=== PATIENT | female | born 1955 | race Caucasian/White ===

== ENCOUNTER 2017-10-02 09:43 | Inpatient (IN) ==
[2017-10-02] MEDS ORDERED: DEXTROSE 50% 25 GM/50 ML VIAL IV PRN (14:47)
[2017-10-02] MEDS ORDERED: ZALEPLON 5 MG CAPSULE PO PRN (14:47)
[2017-10-02] MEDS ORDERED: GLUCAGON 1 MG VIAL IM PRN (14:47)
[2017-10-02] MEDS ORDERED: ACETAMINOPHEN 325 MG TABLET PO PRN (14:47)
[2017-10-02] MEDS ORDERED: BISACODYL 5 MG TABLET PO PRN (14:47)
[2017-10-02] MEDS ORDERED: FAMOTIDINE 20 MG TABLET PO PRN (14:49)
[2017-10-02] MEDS ORDERED: NON-FORMULARY MEDICATION (Albuterol Sulfate [Ventolin Hfa] 2 PUFF) INH PRN (14:49)
[2017-10-02] MEDS ORDERED: ALBUTEROL 1.25 MG/3 ML NEB RESP TX PRN (14:49)
[2017-10-02 16:06] LABS: Albumin 3.1 G/DL (3.4-5.0); Bilirubin,Total 0.7 MG/DL (0.2-1.0); Calcium 8.3 MG/DL (8.5-10.1); Osmolality,Calculated 260.7 MOS/KG (273-304); Potassium 3.1 MMOL/L (3.5-5.1); Total Protein 6.7 G/DL (6.4-8.3)
[2017-10-02] MEDS: POTASSIUM CHLORIDE 20 MEQ TABLET PO SCH ×3 (16:22→23:24)
[2017-10-02] MEDS: ASPIRIN EC 81 MG TABLET PO SCH (21:24)
[2017-10-03] MEDS: POTASSIUM CHLORIDE 20 MEQ TABLET PO SCH (03:53)
[2017-10-03 06:44] LABS: Calcium 8.9 MG/DL (8.5-10.1); Magnesium 2.1 MG/DL (1.8-2.4); Potassium 5.2 MMOL/L (3.5-5.1)
[2017-10-03] MEDS: LISINOPRIL 5 MG TABLET PO SCH (08:28)
[2017-10-03] MEDS: SERTRALINE 100 MG TABLET PO SCH (08:28)
[2017-10-03] MEDS: ATORVASTATIN 20 MG TABLET PO SCH (08:29)
[2017-10-03] MEDS: PANTOPRAZOLE 40 MG TABLET PO SCH (10:51)
[2017-10-03] MEDS: ASPIRIN EC 81 MG TABLET PO SCH (20:56)
[2017-10-04 02:48] LABS: Basophils % 0.4 % (0.0-0.8); Eosinophils # 0.2 10*3/uL (0.0-0.87); Eosinophils % 2.3 % (0.00-10.9); Hematocrit 24.2 VOL% (35.7-47.0); Hemoglobin 6.8 GM/DL (12.0-16.0); Immature Granulocytes % 0.3 %; Immature Granulocytes Absolute 0.03 #; Lymphocytes # 2.6 10*3/uL (1.4-4.0); Lymphocytes % 28.2 % (21.3-54.2); Mean Corpuscular HGB Conc 28.1 GM/DL (32-36); Mean Corpuscular Hemoglobin 17 PG (27-34); Mean Corpuscular Volume 60.8 FL (87-102); Mean Platelet Volume 10.4 FL (9.6-12.0); Monocytes # 0.7 10*3/uL (0.11-0.8); Monocytes % 7.7 % (1.7-12.7); Neutrophils # 5.6 10*3/uL (1.4-7.4); Neutrophils % 61.1 % (38.7-73.9); Platelet Count 314 T/CUMM (130-400); Red Blood Count 3.98 MC/CUMM (3.8-5.5); Red Cell Distribution Width 19.8 % (9.3-17.3); White Blood Count 9.2 T/CUMM (4-12)
[2017-10-04 03:17] LABS: Calcium 8.8 MG/DL (8.5-10.1); Osmolality,Calculated 267.1 MOS/KG (273-304); Potassium 4.4 MMOL/L (3.5-5.1)
[2017-10-04] MEDS: SERTRALINE 100 MG TABLET PO SCH (09:52)
[2017-10-04] MEDS: LISINOPRIL 5 MG TABLET PO SCH (09:52)
[2017-10-04] MEDS: PANTOPRAZOLE 40 MG TABLET PO SCH (09:52)
[2017-10-04] MEDS: ATORVASTATIN 20 MG TABLET PO SCH (09:53)
[2017-10-04] MEDS: ASPIRIN EC 81 MG TABLET PO SCH (21:06)
[2017-10-05 05:44] LABS: Basophils # 0.1 10*3/uL (0.0-0.2); Basophils % 0.6 % (0.0-0.8); Eosinophils # 0.3 10*3/uL (0.0-0.87); Eosinophils % 2.6 % (0.00-10.9); Hematocrit 33.5 VOL% (35.7-47.0); Immature Granulocytes % 0.4 %; Immature Granulocytes Absolute 0.04 #; Lymphocytes # 2.3 10*3/uL (1.4-4.0); Lymphocytes % 23.6 % (21.3-54.2); Mean Corpuscular HGB Conc 29.9 GM/DL (32-36); Mean Corpuscular Hemoglobin 20 PG (27-34); Mean Corpuscular Volume 66.1 FL (87-102); Mean Platelet Volume 10.6 FL (9.6-12.0); Monocytes # 0.9 10*3/uL (0.11-0.8); Monocytes % 9.1 % (1.7-12.7); Neutrophils # 6.1 10*3/uL (1.4-7.4); Neutrophils % 63.7 % (38.7-73.9); Platelet Count 320 T/CUMM (130-400); Red Blood Count 5.07 MC/CUMM (3.8-5.5); Red Cell Distribution Width 25.2 % (9.3-17.3); White Blood Count 9.6 T/CUMM (4-12)
[2017-10-05 06:04] LABS: Elliptocytes Few; Giant Platelets Few; Hypochromasia 1+; Platelet Estimate Adequate
[2017-10-05] MEDS: SERTRALINE 100 MG TABLET PO SCH (09:55)
[2017-10-05] MEDS: LISINOPRIL 5 MG TABLET PO SCH (09:55)
[2017-10-05] MEDS: ATORVASTATIN 20 MG TABLET PO SCH (09:55)
[2017-10-05] MEDS: PANTOPRAZOLE 40 MG TABLET PO SCH (09:55)
[2017-10-05] MEDS ORDERED: ONDANSETRON 4 MG/2 ML VIAL ONE (10:35)
[2017-10-05] MEDS ORDERED: LIDOCAINE 1% 5 ML VIAL ONE (10:35)
[2017-10-05] MEDS ORDERED: PROPOFOL 200 MG/20 ML VIAL IV ONE (10:35)
[2017-10-05] MEDS ORDERED: BISACODYL 5 MG TABLET PO ONE (12:00)
[2017-10-05] MEDS ORDERED: POLYETHYLENE GLYCOL POWDER 255 GM BOTTLE PO ONE (18:00)
[2017-10-05] MEDS: ASPIRIN EC 81 MG TABLET PO SCH (21:04)
[2017-10-06 14:27] LABS: PT Patient Result 10.4 SECS; Partial Thromboplastin Time 25.2 SECS (0-40)
[2017-10-06] MEDS: SERTRALINE 100 MG TABLET PO SCH (14:34)
[2017-10-06] MEDS: LISINOPRIL 5 MG TABLET PO SCH (14:34)
[2017-10-06] MEDS: PANTOPRAZOLE 40 MG TABLET PO SCH (14:34)
[2017-10-06] MEDS ORDERED: PROPOFOL 200 MG/20 ML VIAL IV ONE (15:33)
[2017-10-06] MEDS ORDERED: LIDOCAINE 100 MG/5 ML SYRINGE ONE (15:33)
[2017-10-06 16:26] VITALS: BP 121/60
== END 2017-10-06 18:32 | disposition home or self-care (01) | DRG 375 ==
LOC: SUATTDRO 13:43 → N.4E 13:43
PROVIDERS: ADMIT Internal Medicine Cardiovascular Disease; ATTEND Internal Medicine

== ENCOUNTER 2017-10-15 06:22 | Inpatient (IN) ==
[~2017-10-15 06:22] MED LIST: ALVIMOPAN 12 MG CAPSULE ONE; ALVIMOPAN 12 MG CAPSULE PO ONE; cefOXitin 1,000 MG in SYRINGE 1 EACH IV ONE
[2017-10-15] MEDS ORDERED: FAMOTIDINE 20 MG/2 ML VIAL IV ONE ×2 (06:51→06:57)
[2017-10-15] MEDS ORDERED: SCOPOLAMINE 1.5 MG PATCH TRANSDERM ONE ×3 (06:52→07:10)
[2017-10-15] MEDS ORDERED: BUPIVACAINE 0.25% 50 ML VIAL ONE (07:08)
[2017-10-15] MEDS ORDERED: LIDOCAINE 1%/EPI INJ 20 ML VIAL ONE (07:08)
[2017-10-15] MEDS: LACTATED RINGERS 1,000 ML IV SCH ×2 (07:31→18:36)
[2017-10-15] MEDS ORDERED: ALBUTEROL/IPRATROPIUM 3 ML NEB RESP TX PRN (10:16)
[2017-10-15] MEDS ORDERED: DEXTROSE 50% 25 GM/50 ML VIAL IV PRN (10:22)
[2017-10-15] MEDS ORDERED: GLUCAGON 1 MG VIAL IM PRN (10:22)
[2017-10-15] MEDS ORDERED: SEVOFLURANE 1 UNIT/15 MINUTE INH ONE (10:26)
[2017-10-15] MEDS ORDERED: PROPOFOL 200 MG/20 ML VIAL IV ONE (10:26)
[2017-10-15] MEDS ORDERED: SUFentanil 50 MCG/ML AMP ONE (10:27)
[2017-10-15] MEDS ORDERED: DEXAMETHASONE 10 MG/1 ML VIAL ONE (10:27)
[2017-10-15] MEDS ORDERED: ACETAMINOPHEN 1,000 MG/100 ML VIAL IV ONE (10:27)
[2017-10-15] MEDS ORDERED: GLYCOPYRROLATE 0.4 MG/2 ML VIAL ONE ×2 (10:27→10:32)
[2017-10-15] MEDS ORDERED: MIDAZOLAM 2 MG/2 ML VIAL ONE (10:27)
[2017-10-15] MEDS ORDERED: ALBUTEROL INHALER 8 GM INH ONE (10:28)
[2017-10-15] MEDS ORDERED: LACTATED RINGERS 1,000 ML IV ONE (10:28)
[2017-10-15] MEDS ORDERED: ROCURONIUM 100 MG/10 ML VIAL IV ONE (10:28)
[2017-10-15] MEDS ORDERED: METOCLOPRAMIDE 10 MG/2 ML VIAL ONE (10:31)
[2017-10-15] MEDS: MORPHINE PCA 30 MG/30 ML SYRINGE IV SCH (10:39)
[2017-10-15 10:50] LABS: Hematocrit 32.1 VOL% (35.7-47.0); Hemoglobin 9.7 GM/DL (12.0-16.0)
[2017-10-15 11:53] LABS: Basophils # 0.1 10*3/uL (0.0-0.2); Basophils % 0.7 % (0.0-0.8); Eosinophils # 0.1 10*3/uL (0.0-0.87); Eosinophils % 0.4 % (0.00-10.9); Hematocrit 31.7 VOL% (35.7-47.0); Hemoglobin 9.4 GM/DL (12.0-16.0); Immature Granulocytes % 0.6 %; Lymphocytes # 0.9 10*3/uL (1.4-4.0); Lymphocytes % 5.5 % (21.3-54.2); Mean Corpuscular HGB Conc 29.7 GM/DL (32-36); Mean Corpuscular Hemoglobin 20 PG (27-34); Mean Corpuscular Volume 66.3 FL (87-102); Mean Platelet Volume 10.3 FL (9.6-12.0); Monocytes # 0.6 10*3/uL (0.11-0.8); Monocytes % 3.4 % (1.7-12.7); Neutrophils # 14.5 10*3/uL (1.4-7.4); Neutrophils % 89.4 % (38.7-73.9); Platelet Count 382 T/CUMM (130-400); Red Blood Count 4.78 MC/CUMM (3.8-5.5); Red Cell Distribution Width 26.8 % (9.3-17.3); White Blood Count 16.2 T/CUMM (4-12)
[2017-10-15 12:21] LABS: Calcium 8.8 MG/DL (8.5-10.1); Potassium 3.9 MMOL/L (3.5-5.1)
[2017-10-15 12:34] LABS: Hypochromasia 1+; Microcytosis 1+
[2017-10-15 12:35] LABS: Elliptocytes Few; Platelet Estimate Normal
[2017-10-15] MEDS: INSULIN REGULAR 100 UNIT/ML SUBCUT SCH ×2 (15:19→19:01)
[2017-10-15] MEDS: cefOXitin 2,000 MG in SYRINGE 1 EACH IV SCH ×2 (15:29→20:49)
[2017-10-15 19:12] LABS: Hematocrit 33.2 VOL% (35.7-47.0); Hemoglobin 9.8 GM/DL (12.0-16.0)
[2017-10-15] MEDS: ASPIRIN EC 81 MG TABLET PO SCH (20:49)
[2017-10-15] MEDS: ALVIMOPAN 12 MG CAPSULE PO SCH (20:49)
[2017-10-15 21:52] LABS: Apearance,Urine CLEAR (Clear); Bacteria,Urine Occasional /HPF (Few); Bilirubin,Urine Negative (Negative); Blood, Urine Negative (Negative); Glucose,Urine (UA) Negative (Negative); Hyaline Casts,Urine 4 /LPF (0-3); Ketones,Urine Negative (Negative); Mucus,Urine Occasional /LPF (Occasional); Nitrite,Urine Negative (Negative); Protein,Urine Negative; Squamous Epithelial Cell,Urine Occasional /HPF (0-10); Urine Color Yellow (Yellow); Urine Specific Gravity 1.012 (1.001-1.035); Urine Urobilinogen < 2.0 EU/DL (0.2-1.0); WBC,Urine <1 /HPF (0-6)
[2017-10-16] MEDS: INSULIN REGULAR 100 UNIT/ML SUBCUT SCH ×4 (00:41→17:42)
[2017-10-16] MEDS: cefOXitin 2,000 MG in SYRINGE 1 EACH IV SCH (02:14)
[2017-10-16 04:41] LABS: Basophils # 0.1 10*3/uL (0.0-0.2); Basophils % 0.3 % (0.0-0.8); Hematocrit 31.8 VOL% (35.7-47.0); Hematocrit 32.1 VOL% (35.7-47.0); Hemoglobin 9.5 GM/DL (12.0-16.0); Immature Granulocytes % 0.6 %; Immature Granulocytes Absolute 0.09 #; Lymphocytes # 1.7 10*3/uL (1.4-4.0); Lymphocytes % 10.2 % (21.3-54.2); Mean Corpuscular HGB Conc 29.9 GM/DL (32-36); Mean Corpuscular Hemoglobin 20 PG (27-34); Mean Corpuscular Volume 66.4 FL (87-102); Mean Platelet Volume 10.5 FL (9.6-12.0); Monocytes # 1.2 10*3/uL (0.11-0.8); Monocytes % 7.5 % (1.7-12.7); Neutrophils # 13.2 10*3/uL (1.4-7.4); Neutrophils % 81.4 % (38.7-73.9); Platelet Count 419 T/CUMM (130-400); Red Blood Count 4.79 MC/CUMM (3.8-5.5); Red Cell Distribution Width 27.2 % (9.3-17.3); White Blood Count 16.2 T/CUMM (4-12)
[2017-10-16 04:59] LABS: Calcium 8.8 MG/DL (8.5-10.1); Osmolality,Calculated 264.4 MOS/KG (273-304); Potassium 4.2 MMOL/L (3.5-5.1)
[2017-10-16] MEDS: ENOXAPARIN 30 MG/0.3 ML SYRINGE SUBCUT SCH (05:59)
[2017-10-16 06:27] LABS: Burr Cells 1+; Hypochromasia 1+; Macrocytosis 1+
[2017-10-16 06:28] LABS: Target Cells Slight
[2017-10-16] MEDS: LACTATED RINGERS 1,000 ML IV SCH ×4 (08:14→22:54)
[2017-10-16] MEDS: LISINOPRIL 5 MG TABLET PO SCH (09:21)
[2017-10-16] MEDS: ALVIMOPAN 12 MG CAPSULE PO SCH ×2 (09:21→22:05)
[2017-10-16] MEDS: PANTOPRAZOLE 40 MG TABLET PO SCH (09:21)
[2017-10-16] MEDS: MORPHINE PCA 30 MG/30 ML SYRINGE IV SCH (14:28)
[2017-10-16] MEDS: ASPIRIN EC 81 MG TABLET PO SCH (22:05)
[2017-10-17] MEDS: INSULIN REGULAR 100 UNIT/ML SUBCUT SCH ×4 (00:15→19:24)
[2017-10-17] MEDS: ENOXAPARIN 30 MG/0.3 ML SYRINGE SUBCUT SCH (06:17)
[2017-10-17] MEDS: LACTATED RINGERS 1,000 ML IV SCH ×2 (07:16→21:51)
[2017-10-17] MEDS: LISINOPRIL 5 MG TABLET PO SCH (08:52)
[2017-10-17] MEDS: PANTOPRAZOLE 40 MG TABLET PO SCH (08:52)
[2017-10-17] MEDS: ALVIMOPAN 12 MG CAPSULE PO SCH ×2 (08:52→21:48)
[2017-10-17] MEDS: ONDANSETRON 4 MG/2 ML VIAL IV PRN ×2 (08:59→23:45)
[2017-10-17] MEDS: MORPHINE PCA 30 MG/30 ML SYRINGE IV SCH (13:15)
[2017-10-17] MEDS: ASPIRIN EC 81 MG TABLET PO SCH (21:48)
[2017-10-18] MEDS: INSULIN REGULAR 100 UNIT/ML SUBCUT SCH ×4 (01:38→18:16)
[2017-10-18] MEDS: LACTATED RINGERS 1,000 ML IV SCH ×3 (02:49→17:18)
[2017-10-18] MEDS: ONDANSETRON 4 MG/2 ML VIAL IV PRN ×3 (03:51→17:14)
[2017-10-18] MEDS: ENOXAPARIN 40 MG/0.4 ML SYRINGE SUBCUT SCH (06:21)
[2017-10-18] MEDS: LISINOPRIL 5 MG TABLET PO SCH (08:45)
[2017-10-18] MEDS: PANTOPRAZOLE 40 MG TABLET PO SCH (08:45)
[2017-10-18] MEDS: ALVIMOPAN 12 MG CAPSULE PO SCH ×2 (08:46→20:40)
[2017-10-18] MEDS: MORPHINE PCA 30 MG/30 ML SYRINGE IV SCH (14:30)
[2017-10-18] MEDS: ASPIRIN EC 81 MG TABLET PO SCH (20:40)
[2017-10-19] MEDS: INSULIN REGULAR 100 UNIT/ML SUBCUT SCH ×5 (01:02→23:47)
[2017-10-19] MEDS: LACTATED RINGERS 1,000 ML IV SCH ×3 (06:34→23:47)
[2017-10-19] MEDS: ENOXAPARIN 40 MG/0.4 ML SYRINGE SUBCUT SCH (07:05)
[2017-10-19] MEDS: LISINOPRIL 5 MG TABLET PO SCH (08:28)
[2017-10-19] MEDS: PANTOPRAZOLE 40 MG TABLET PO SCH (08:28)
[2017-10-19] MEDS: ALVIMOPAN 12 MG CAPSULE PO SCH ×2 (08:28→21:23)
[2017-10-19] MEDS: MORPHINE PCA 30 MG/30 ML SYRINGE IV SCH ×2 (10:17→13:33)
[2017-10-19] MEDS: ASPIRIN EC 81 MG TABLET PO SCH (21:22)
[2017-10-20] MEDS: LACTATED RINGERS 1,000 ML IV SCH (06:34)
[2017-10-20] MEDS: ENOXAPARIN 40 MG/0.4 ML SYRINGE SUBCUT SCH (06:34)
[2017-10-20] MEDS: INSULIN REGULAR 100 UNIT/ML SUBCUT SCH ×2 (06:34→12:29)
[2017-10-20] MEDS: PANTOPRAZOLE 40 MG TABLET PO SCH (08:52)
[2017-10-20] MEDS: LISINOPRIL 5 MG TABLET PO SCH (08:52)
[2017-10-20] MEDS: MORPHINE PCA 30 MG/30 ML SYRINGE IV SCH (10:12)
[2017-10-20 16:38] VITALS: BP 132/62
== END 2017-10-20 17:15 | disposition home or self-care (01) | DRG 330 ==
LOC: N.OR 06:22 → N.SDSINP 06:23 → N.4E 11:09
PROVIDERS: ADMIT Surgery; ATTEND Surgery

== ENCOUNTER 2019-09-17 19:22 | Inpatient (IN) ==
[2019-09-17 20:10] LABS: PT Patient Result 11.3 SECS (9.6-12.2); Partial Thromboplastin Time 27.4 SECS (20.8-36.0)
[2019-09-17 20:21] LABS: Basophils % 0.2 % (0.0-0.8); Eosinophils # 0.1 10*3/uL (0.0-0.87); Eosinophils % 1.4 % (0.00-10.9); Hematocrit 33.1 VOL% (35.7-47.0); Hemoglobin 9.7 GM/DL (12.0-16.0); Immature Granulocytes % 0.5 %; Immature Granulocytes Absolute 0.05 #; Lymphocytes # 1.3 10*3/uL (1.4-4.0); Lymphocytes % 13.1 % (21.3-54.2); Mean Corpuscular HGB Conc 29.3 GM/DL (32-36); Mean Corpuscular Volume 73.7 FL (87-102); Monocytes % 9.5 % (1.7-12.7); Neutrophils % 75.3 % (38.7-73.9); Platelet Count 143 T/CUMM (130-400); Red Blood Count 4.49 MC/CUMM (3.8-5.5); Red Cell Distribution Width 24.9 % (9.3-17.3); White Blood Count 9.9 T/CUMM (4-12)
[2019-09-17 20:22] LABS: Albumin 3.1 G/DL (3.4-5.0); Bilirubin,Total 1.4 MG/DL (0.2-1.0); Calcium 8.4 MG/DL (8.5-10.1); Osmolality,Calculated 270.1 MOS/KG (273-304); Total Protein 6.4 G/DL (6.4-8.3)
[2019-09-17 20:26] LABS: Eosinophils 1 % (0-10); Hypochromasia 1+; Lymphocytes 15 % (20-55); Segmented Neutrophils 75 % (50-85); Total Cells Counted 100
[2019-09-17 20:27] LABS: Macrocytosis 1+; Ovalocytes Slight; Platelet Estimate Adequate; Poikilocytosis 1+
[2019-09-17 20:28] LABS: Burr Cells Slight
[2019-09-17] MEDS ORDERED: LEVOFLOXACIN INJ 750 MG in PREMIX 1 EACH IV STA (20:38)
[2019-09-17] MEDS ORDERED: POTASSIUM CHLORIDE 20 MEQ/15 ML UDCUP PO ONE (20:43)
[2019-09-17] MEDS ORDERED: MEROPENEM 1,000 MG in SODIUM CHLORIDE 0.9% 100 ML IV STA (21:55)
[2019-09-17] MEDS ORDERED: MEROPENEM 500 MG VIAL ONE (22:02)
[2019-09-17] MEDS ORDERED: ONDANSETRON 4 MG/2 ML VIAL IV PRN (23:49)
[2019-09-18] MEDS ORDERED: SODIUM CHLOR 0.9% KCL 40 MEQ 40 MEQ/1,000 ML BAG IV SCH (01:00)
[2019-09-18] MEDS ORDERED: MAGNESIUM SULF RIDER 2 GM in PREMIX 1 EACH IV ONE (01:05)
[2019-09-18 01:12] LABS: Basophils % 0.2 % (0.0-0.8); Eosinophils # 0.1 10*3/uL (0.0-0.87); Eosinophils % 1.5 % (0.00-10.9); Hematocrit 30.2 VOL% (35.7-47.0); Hemoglobin 8.7 GM/DL (12.0-16.0); Immature Granulocytes % 0.6 %; Immature Granulocytes Absolute 0.05 #; Mean Corpuscular HGB Conc 28.8 GM/DL (32-36); Monocytes % 11.3 % (1.7-12.7); Neutrophils % 74.4 % (38.7-73.9); Platelet Count 103 T/CUMM (130-400); Red Blood Count 4.08 MC/CUMM (3.8-5.5); Red Cell Distribution Width 24.8 % (9.3-17.3); White Blood Count 8.4 T/CUMM (4-12)
[2019-09-18] MEDS: ENOXAPARIN 40 MG/0.4 ML SYRINGE SUBCUT SCH ×2 (01:49→10:04)
[2019-09-18 01:54] LABS: Albumin 2.7 G/DL (3.4-5.0); Bilirubin,Total 1.4 MG/DL (0.2-1.0); Calcium 8.6 MG/DL (8.5-10.1); Osmolality,Calculated 267.1 MOS/KG (273-304); Total Protein 6.3 G/DL (6.4-8.3)
[2019-09-18] MEDS: MEROPENEM 500 MG in SODIUM CHLORIDE 0.9% 100 ML IV SCH ×4 (04:28→22:00)
[2019-09-18] MEDS: ALBUTEROL 1.25 MG/3 ML NEB RESP TX SCH ×3 (07:20→19:10)
[2019-09-18 07:59] LABS: Apearance,Urine CLEAR (Clear); Bacteria,Urine Occasional /HPF (Few); Bilirubin,Urine Negative (Negative); Blood, Urine Negative (Negative); Glucose,Urine (UA) Negative (Negative); Ketones,Urine Negative (Negative); Mucus,Urine Occasional /LPF (Occasional); Nitrite,Urine Negative (Negative); Protein,Urine Negative; RBC,Urine 2 /HPF (0-4); Squamous Epithelial Cell,Urine Occasional /HPF (0-10); Urine Color Yellow (Yellow); WBC,Urine 1 /HPF (0-6)
[2019-09-18] MEDS ORDERED: MAGNESIUM SULF RIDER 4 GM in PREMIX 1 EACH IV PRN (08:24)
[2019-09-18] MEDS ORDERED: POTASSIUM CHLORIDE RIDER 10 MEQ in PREMIX 1 EACH IV PRN (08:24)
[2019-09-18] MEDS ORDERED: MAGNESIUM SULF RIDER 2 GM in PREMIX 1 EACH IV PRN (08:24)
[2019-09-18] MEDS: POTASSIUM CHLORIDE 20 MEQ TABLET PO PRN ×3 (11:29→18:39)
[2019-09-18] MEDS: LEVOFLOXACIN INJ 750 MG in PREMIX 1 EACH IV SCH (20:24)
[2019-09-18] MEDS: ASPIRIN EC 81 MG TABLET PO SCH (20:25)
[2019-09-18] MEDS: CHOLECALCIFEROL 1,000 UNIT TABLET PO SCH (20:25)
[2019-09-18] MEDS: SERTRALINE 100 MG TABLET PO SCH (20:25)
[2019-09-19] MEDS: ALBUTEROL 1.25 MG/3 ML NEB RESP TX SCH ×4 (00:24→19:25)
[2019-09-19] MEDS: MEROPENEM 500 MG in SODIUM CHLORIDE 0.9% 100 ML IV SCH ×4 (04:27→22:22)
[2019-09-19 05:23] LABS: Albumin 2.5 G/DL (3.4-5.0); Bilirubin,Total 1.5 MG/DL (0.2-1.0); Calcium 9.1 MG/DL (8.5-10.1); Osmolality,Calculated 275.4 MOS/KG (273-304); Total Protein 6.2 G/DL (6.4-8.3)
[2019-09-19 05:27] LABS: Basophils % 0.3 % (0.0-0.8); Eosinophils # 0.1 10*3/uL (0.0-0.87); Eosinophils % 1.1 % (0.00-10.9); Hemoglobin 8.9 GM/DL (12.0-16.0); Immature Granulocytes % 0.4 %; Immature Granulocytes Absolute 0.03 #; Lymphocytes % 14.5 % (21.3-54.2); Mean Corpuscular HGB Conc 28.7 GM/DL (32-36); Mean Corpuscular Volume 75.2 FL (87-102); Monocytes % 12.3 % (1.7-12.7); Neutrophils % 71.4 % (38.7-73.9); Platelet Count 136 T/CUMM (130-400); Red Blood Count 4.12 MC/CUMM (3.8-5.5); Red Cell Distribution Width 25.1 % (9.3-17.3); White Blood Count 7.2 T/CUMM (4-12)
[2019-09-19 05:34] LABS: Hypochromasia 1+; Microcytosis 2+; Ovalocytes Few; Spherocytes Slight
[2019-09-19 05:35] LABS: Platelet Estimate Adequate; Tear Drop Cells Slight
[2019-09-19] MEDS: ENOXAPARIN 40 MG/0.4 ML SYRINGE SUBCUT SCH (08:23)
[2019-09-19] MEDS: predniSONE 20 MG TABLET PO SCH (16:21)
[2019-09-19] MEDS: SERTRALINE 100 MG TABLET PO SCH (20:49)
[2019-09-19] MEDS: CHOLECALCIFEROL 1,000 UNIT TABLET PO SCH (20:49)
[2019-09-19] MEDS: LEVOFLOXACIN INJ 750 MG in PREMIX 1 EACH IV SCH (20:49)
[2019-09-19] MEDS: ASPIRIN EC 81 MG TABLET PO SCH (20:49)
[2019-09-20] MEDS: MEROPENEM 500 MG in SODIUM CHLORIDE 0.9% 100 ML IV SCH ×3 (04:03→20:05)
[2019-09-20] MEDS: ALBUTEROL 1.25 MG/3 ML NEB RESP TX SCH ×4 (07:29→19:05)
[2019-09-20] MEDS: predniSONE 20 MG TABLET PO SCH (08:43)
[2019-09-20] MEDS: ENOXAPARIN 40 MG/0.4 ML SYRINGE SUBCUT SCH (08:45)
[2019-09-20] MEDS ORDERED: ALBUTEROL 1.25 MG/3 ML NEB RESP TX ONE (09:48)
[2019-09-20] MEDS: CHOLECALCIFEROL 1,000 UNIT TABLET PO SCH (20:04)
[2019-09-20] MEDS: SERTRALINE 100 MG TABLET PO SCH (20:04)
[2019-09-20] MEDS: ASPIRIN EC 81 MG TABLET PO SCH (20:04)
[2019-09-20] MEDS: LEVOFLOXACIN INJ 750 MG in PREMIX 1 EACH IV SCH (20:38)
[2019-09-21] MEDS: MEROPENEM 500 MG in SODIUM CHLORIDE 0.9% 100 ML IV SCH ×4 (01:14→19:56)
[2019-09-21] MEDS: ALBUTEROL 1.25 MG/3 ML NEB RESP TX SCH ×5 (07:08→23:06)
[2019-09-21 08:13] LABS: Basophils % 0.3 % (0.0-0.8); Eosinophils # 0.1 10*3/uL (0.0-0.87); Eosinophils % 0.8 % (0.00-10.9); Hematocrit 35.7 VOL% (35.7-47.0); Hemoglobin 10.1 GM/DL (12.0-16.0); Immature Granulocytes % 0.8 %; Immature Granulocytes Absolute 0.05 #; Lymphocytes # 1.1 10*3/uL (1.4-4.0); Lymphocytes % 16.3 % (21.3-54.2); Mean Corpuscular HGB Conc 28.3 GM/DL (32-36); Mean Corpuscular Volume 76.3 FL (87-102); Neutrophils % 71.8 % (38.7-73.9); Platelet Count 193 T/CUMM (130-400); Red Blood Count 4.68 MC/CUMM (3.8-5.5); Red Cell Distribution Width 25.6 % (9.3-17.3); White Blood Count 6.5 T/CUMM (4-12)
[2019-09-21 08:26] LABS: Calcium 9.5 MG/DL (8.5-10.1); Osmolality,Calculated 276.4 MOS/KG (273-304)
[2019-09-21 08:28] LABS: Anisocytosis Slight; Macrocytosis Slight; Poikilocytosis 1+; Stomatocytes Slight
[2019-09-21 08:29] LABS: Ovalocytes Slight
[2019-09-21] MEDS: predniSONE 20 MG TABLET PO SCH (08:40)
[2019-09-21] MEDS: ENOXAPARIN 40 MG/0.4 ML SYRINGE SUBCUT SCH (08:40)
[2019-09-21] MEDS: DORNASE ALFA 2.5 MG/2.5 ML VIAL RESP TX SCH ×2 (11:56→19:55)
[2019-09-21] MEDS: methylPREDNISolone SOD SUC 40 MG/1 ML VIAL IV SCH ×2 (12:26→22:47)
[2019-09-21] MEDS: LEVOFLOXACIN INJ 750 MG in PREMIX 1 EACH IV SCH (20:56)
[2019-09-21] MEDS: ASPIRIN EC 81 MG TABLET PO SCH (20:57)
[2019-09-21] MEDS: CHOLECALCIFEROL 1,000 UNIT TABLET PO SCH (20:57)
[2019-09-21] MEDS: SERTRALINE 100 MG TABLET PO SCH (20:58)
[2019-09-22] MEDS: MEROPENEM 500 MG in SODIUM CHLORIDE 0.9% 100 ML IV SCH ×4 (01:30→20:04)
[2019-09-22] MEDS: ALBUTEROL 1.25 MG/3 ML NEB RESP TX SCH ×6 (02:52→23:20)
[2019-09-22 05:22] LABS: Hematocrit 37.3 VOL% (35.7-47.0); Hemoglobin 10.5 GM/DL (12.0-16.0); Immature Granulocytes % 3.2 %; Immature Granulocytes Absolute 0.23 #; Lymphocytes # 0.7 10*3/uL (1.4-4.0); Lymphocytes % 9.2 % (21.3-54.2); Mean Corpuscular HGB Conc 28.2 GM/DL (32-36); Mean Corpuscular Volume 76.4 FL (87-102); Monocytes % 5.8 % (1.7-12.7); Neutrophils % 81.8 % (38.7-73.9); Platelet Count 214 T/CUMM (130-400); Red Blood Count 4.88 MC/CUMM (3.8-5.5); Red Cell Distribution Width 25.2 % (9.3-17.3); White Blood Count 7.3 T/CUMM (4-12)
[2019-09-22 05:41] LABS: Hypochromasia 1+; Ovalocytes Slight; Platelet Estimate Adequate
[2019-09-22] MEDS: DORNASE ALFA 2.5 MG/2.5 ML VIAL RESP TX SCH ×2 (06:49→19:10)
[2019-09-22] MEDS: ENOXAPARIN 40 MG/0.4 ML SYRINGE SUBCUT SCH (07:19)
[2019-09-22] MEDS: methylPREDNISolone SOD SUC 40 MG/1 ML VIAL IV SCH ×2 (12:50→23:57)
[2019-09-22] MEDS: LEVOFLOXACIN INJ 750 MG in PREMIX 1 EACH IV SCH (20:43)
[2019-09-22] MEDS: CHOLECALCIFEROL 1,000 UNIT TABLET PO SCH (20:47)
[2019-09-22] MEDS: ASPIRIN EC 81 MG TABLET PO SCH (20:47)
[2019-09-22] MEDS: SERTRALINE 100 MG TABLET PO SCH (20:47)
[2019-09-23] MEDS: MEROPENEM 500 MG in SODIUM CHLORIDE 0.9% 100 ML IV SCH ×3 (02:03→14:08)
[2019-09-23] MEDS: ALBUTEROL 1.25 MG/3 ML NEB RESP TX SCH ×3 (03:44→11:23)
[2019-09-23] MEDS: ENOXAPARIN 40 MG/0.4 ML SYRINGE SUBCUT SCH (08:00)
[2019-09-23] MEDS: DORNASE ALFA 2.5 MG/2.5 ML VIAL RESP TX SCH (08:23)
[2019-09-23] MEDS: methylPREDNISolone SOD SUC 40 MG/1 ML VIAL IV SCH (12:17)
[2019-09-23 16:09] VITALS: BP 150/78
== END 2019-09-23 15:48 | disposition home or self-care (01) | DRG 194 ==
LOC: N.EDINP 19:22 → N.ED 19:22 → N.4E 23:07 → SUPCPDRO 09-19 16:55
PROVIDERS: ADMIT Internal Medicine; ATTEND Internal Medicine

== ENCOUNTER 2019-11-18 09:28 | Inpatient (IN) ==
[2019-11-18] MEDS ORDERED: methylPREDNISolone SOD SUC 125 MG/2 ML VIAL IV STA (10:07)
[2019-11-18] MEDS ORDERED: ONDANSETRON 4 MG/2 ML VIAL IV STA (10:07)
[2019-11-18] MEDS ORDERED: SODIUM CHLORIDE 0.9% 500 ML IV STA (10:07)
[2019-11-18] MEDS ORDERED: ALBUTEROL 2.5 MG/3 ML NEB RESP TX SCH (10:30)
[2019-11-18] MEDS ORDERED: DIPH/TET/ACEL PERT BOOSTER VACCINE 0.5 ML VIAL IM ONE (10:30)
[2019-11-18] MEDS ORDERED: CLINDAMYCIN INJ 600 MG in PREMIX 1 EACH IV STA (10:30)
[2019-11-18 10:50] LABS: Basophils % 0.5 % (0.0-0.8); Eosinophils % 0.2 % (0.00-10.9); Hematocrit 30.1 VOL% (35.7-47.0); Immature Granulocytes % 0.5 %; Immature Granulocytes Absolute 0.02 #; Lymphocytes # 0.5 10*3/uL (1.4-4.0); Mean Corpuscular HGB Conc 29.9 GM/DL (32-36); Mean Corpuscular Volume 74.9 FL (87-102); Monocytes % 3.1 % (1.7-12.7); Neutrophils % 83.7 % (38.7-73.9); Platelet Count 120 T/CUMM (130-400); Red Blood Count 4.02 MC/CUMM (3.8-5.5); Red Cell Distribution Width 23.4 % (9.3-17.3); White Blood Count 4.3 T/CUMM (4-12)
[2019-11-18 10:59] LABS: PT Patient Result 10.8 SECS (9.6-12.2)
[2019-11-18 11:17] LABS: Anisocytosis 1+; Platelet Estimate Adequate; Poikilocytosis 1+
[2019-11-18 11:18] LABS: Ovalocytes Few; Tear Drop Cells Few
[2019-11-18 11:19] LABS: Albumin 2.7 G/DL (3.4-5.0); Bilirubin,Total 1.5 MG/DL (0.2-1.0); Calcium 8.6 MG/DL (8.5-10.1); Osmolality,Calculated 266.4 MOS/KG (273-304); Total Protein 6.7 G/DL (6.4-8.3)
[2019-11-18 12:07] LABS: Apearance,Urine CLEAR (Clear); Bilirubin,Urine Negative (Negative); Blood, Urine Negative (Negative); Glucose,Urine (UA) Negative (Negative); Ketones,Urine Negative (Negative); Mucus,Urine Occasional /LPF (Occasional); Nitrite,Urine Negative (Negative); Protein,Urine Negative; RBC,Urine 1 /HPF (0-4); Squamous Epithelial Cell,Urine Occasional /HPF (0-10); Urine Color Yellow (Yellow); Urine Specific Gravity 1.023 (1.001-1.035); WBC,Urine 1 /HPF (0-6)
[2019-11-18] MEDS ORDERED: OSELTAMIVIR 75 MG CAPSULE PO ONE (12:39)
[2019-11-18] MEDS ORDERED: ONDANSETRON 4 MG/2 ML VIAL IV PRN (14:02)
[2019-11-18] MEDS ORDERED: MORPHINE 4 MG/1 ML VIAL IV PRN (14:02)
[2019-11-18] MEDS ORDERED: NICOTINE 21 MG/24 HR PATCH TRANSDERM PRN (14:02)
[2019-11-18] MEDS: ENOXAPARIN 40 MG/0.4 ML SYRINGE SUBCUT SCH (15:48)
[2019-11-18] MEDS ORDERED: HEPARIN LOCK FLUSH 500 UNIT/5 ML SYRINGE IV PRN (16:34)
[2019-11-18 17:17] LABS: Troponin I 0.941 NG/ML (0.00-0.045)
[2019-11-18] MEDS: SODIUM CHLORIDE 0.9% 1,000 ML IV SCH (18:32)
[2019-11-18 20:26] LABS: Troponin I 0.823 NG/ML (0.00-0.045)
[2019-11-18] MEDS: ALBUTEROL/IPRATROPIUM 3 ML NEB RESP TX SCH (20:37)
[2019-11-18] MEDS ORDERED: OSELTAMIVIR 75 MG CAPSULE PO SCH (21:00)
[2019-11-18] MEDS: CHOLECALCIFEROL 1,000 UNIT TABLET PO SCH (21:17)
[2019-11-18] MEDS: ASPIRIN EC 81 MG TABLET PO SCH (21:17)
[2019-11-18] MEDS: SERTRALINE 100 MG TABLET PO SCH (21:17)
[2019-11-18] MEDS: OSELTAMIVIR 75 MG CAPSULE PO SCH (21:18)
[2019-11-18] MEDS: DEXAMETHASONE 4 MG TABLET PO SCH (21:18)
[2019-11-18 23:34] LABS: Troponin I 0.695 NG/ML (0.00-0.045)
[2019-11-19] MEDS: ALBUTEROL/IPRATROPIUM 3 ML NEB RESP TX SCH ×7 (00:41→23:38)
[2019-11-19 05:30] LABS: Immature Granulocytes Absolute 0.01 #; Lymphocytes # 0.3 10*3/uL (1.4-4.0); Mean Corpuscular HGB Conc 28.6 GM/DL (32-36); Mean Corpuscular Volume 78.4 FL (87-102); Monocytes % 1.9 % (1.7-12.7); Neutrophils % 73.1 % (38.7-73.9); Platelet Count 97 T/CUMM (130-400); Red Blood Count 3.57 MC/CUMM (3.8-5.5); Red Cell Distribution Width 23.1 % (9.3-17.3)
[2019-11-19 06:05] LABS: Albumin 2.5 G/DL (3.4-5.0); Bilirubin,Total 0.9 MG/DL (0.2-1.0); Calcium 8.7 MG/DL (8.5-10.1); Osmolality,Calculated 273.8 MOS/KG (273-304); Risk Ratio 5.22; Thyroid Stimulating Hormone 0.417 uIU/ml (0.358-3.74); Total Protein 6.3 G/DL (6.4-8.3); VLDL CHOLESTEROL 30.6 MG/DL
[2019-11-19 06:48] LABS: Anisocytosis 1+; Hypochromasia 1+; Lymphocytes 10 % (20-55); Microcytosis 1+; Ovalocytes 1+; Segmented Neutrophils 90 % (50-85); Total Cells Counted 100
[2019-11-19 06:49] LABS: Platelet Estimate Decreased
[2019-11-19] MEDS: DEXAMETHASONE 4 MG TABLET PO SCH ×2 (08:32→21:02)
[2019-11-19] MEDS: PANTOPRAZOLE 40 MG TABLET PO SCH (08:32)
[2019-11-19] MEDS: OSELTAMIVIR 75 MG CAPSULE PO SCH ×2 (08:32→21:02)
[2019-11-19] MEDS: MONTELUKAST 10 MG TABLET PO SCH (08:32)
[2019-11-19] MEDS: SODIUM CHLORIDE 0.9% 1,000 ML IV SCH ×2 (08:38→22:50)
[2019-11-19] MEDS: FILGRASTIM-SNDZ 300 MCG/0.5 ML SYRINGE SUBCUT SCH (13:04)
[2019-11-19] MEDS: ENOXAPARIN 40 MG/0.4 ML SYRINGE SUBCUT SCH (14:39)
[2019-11-19] MEDS: ASPIRIN EC 81 MG TABLET PO SCH (21:01)
[2019-11-19] MEDS: SERTRALINE 100 MG TABLET PO SCH (21:02)
[2019-11-19] MEDS: CHOLECALCIFEROL 1,000 UNIT TABLET PO SCH (21:02)
[2019-11-20] MEDS: ALBUTEROL/IPRATROPIUM 3 ML NEB RESP TX SCH ×3 (03:00→11:16)
[2019-11-20 07:02] LABS: Hematocrit 27.9 VOL% (35.7-47.0); Immature Granulocytes % 2.5 %; Immature Granulocytes Absolute 0.18 #; Lymphocytes # 0.7 10*3/uL (1.4-4.0); Lymphocytes % 9.7 % (21.3-54.2); Mean Corpuscular HGB Conc 28.7 GM/DL (32-36); Mean Corpuscular Volume 79.3 FL (87-102); Monocytes % 0.7 % (1.7-12.7); Neutrophils % 87.1 % (38.7-73.9); Platelet Count 89 T/CUMM (130-400); Red Blood Count 3.52 MC/CUMM (3.8-5.5); Red Cell Distribution Width 22.9 % (9.3-17.3); White Blood Count 7.3 T/CUMM (4-12)
[2019-11-20 07:13] LABS: Albumin 2.5 G/DL (3.4-5.0); Bilirubin,Total 0.9 MG/DL (0.2-1.0); Calcium 8.5 MG/DL (8.5-10.1); Osmolality,Calculated 284.8 MOS/KG (273-304); Total Protein 6.1 G/DL (6.4-8.3)
[2019-11-20 08:59] LABS: Band Neutrophils 10 % (0-10); Lymphocytes 13 % (20-55); Platelet Estimate Decreased; Segmented Neutrophils 74 % (50-85); Total Cells Counted 100
[2019-11-20 09:00] LABS: Anisocytosis 2+; Poikilocytosis Slight; Smudge Cells Few
[2019-11-20] MEDS: FILGRASTIM-SNDZ 300 MCG/0.5 ML SYRINGE SUBCUT SCH (09:08)
[2019-11-20] MEDS: DEXAMETHASONE 4 MG TABLET PO SCH (09:09)
[2019-11-20] MEDS: OSELTAMIVIR 75 MG CAPSULE PO SCH (09:10)
[2019-11-20] MEDS: MONTELUKAST 10 MG TABLET PO SCH (09:10)
[2019-11-20] MEDS: PANTOPRAZOLE 40 MG TABLET PO SCH (09:10)
[2019-11-20] MEDS ORDERED: POTASSIUM CHLORIDE 20 MEQ TABLET PO PRN (09:32)
[2019-11-20] MEDS ORDERED: POTASSIUM CHLORIDE 20 MEQ TABLET PO ONE (10:36)
[2019-11-20 12:14] VITALS: BP 139/66
== END 2019-11-20 12:14 | disposition home or self-care (01) | DRG 193 ==
LOC: N.ED 09:28 → N.EDINP 14:02 → SUATTDRO 14:02 → N.EDINP 15:03 → N.2E 15:19
PROVIDERS: ADMIT Internal Medicine; ATTEND Internal Medicine